=== PATIENT | male | born 2000 | race Caucasian/White ===

== ENCOUNTER 2021-10-06 09:44 | Emergency (ER) | payer BC ==
[2021-10-06 09:53] VITALS: RESP 18; TEMP 97.7
--- NOTE | 2021-10-06 10:08 | ED ---
General Adult HPI - General Chief complaint: Recheck/Abnormal Lab/Rx Stated complaint: covid+, fever Time Seen by Provider: 10/06/21 09:56 Source: patient, RN notes reviewed, old records reviewed Mode of arrival: ambulatory Limitations: no limitations - History of Present Illness Initial comments: 20-year-old male presenting for evaluation of cough, congestion, sore throat. Patient tested positive for coronavirus yesterday. He's had symptoms for 3 days. He has no dyspnea. Minimal cough. Patient is otherwise healthy. He presents for possibility of monoclonal antibodies. - Related Data Allergies Allergy/AdvReac Type Severity Reaction Status Date / Time No Known Allergies Allergy Verified 10/06/21 09:50 Review of Systems ROS Statement: Those systems with pertinent positive or pertinent negative responses have been documented in the HPI. ROS Other: All systems not noted in ROS Statement are negative. Past Medical History Past Medical History: No Reported History History of Any Multi-Drug Resistant Organisms: None Reported Past Surgical History: No Surgical Hx Reported Past Psychological History: No Psychological Hx Reported Smoking Status: Never smoker Past Alcohol Use History: None Reported Past Drug Use History: None Reported General Exam Limitations: no limitations General appearance: alert, in no apparent distress Head exam: Present: atraumatic, normocephalic Eye exam: Present: normal appearance, PERRL ENT exam: Present: normal exam Neck exam: Present: normal inspection. Absent: tenderness, meningismus Respiratory exam: Present: normal lung sounds bilaterally. Absent: respiratory distress, wheezes Cardiovascular Exam: Present: regular rate, normal rhythm GI/Abdominal exam: Present: soft. Absent: distended, tenderness, guarding Extremities exam: Present: normal inspection, normal capillary refill. Absent: pedal edema Neurological exam: Present: alert, oriented X3, CN II-XII intact. Absent: motor sensory deficit Psychiatric exam: Present: normal affect, normal mood Skin exam: Present: warm, dry, intact. Absent: cyanosis, diaphoretic Course Vital Signs 10/06/21 10/06/21 09:51 10:03 Temperature 97.7 F Pulse Rate 60 Respiratory 18 18 Rate Blood Pressure 129/74 O2 Sat by Pulse 99 Oximetry Medical Decision Making - Medical Decision Making Patient does need for medical antibody infusion based on weight. We did discuss risks and benefits and the patient wants to proceed monoclonal antibodies at this time. Disposition Clinical Impression: COVID-19 Disposition: HOME SELF-CARE Condition: Fair Instructions (If sedation given, give patient instructions): Coronavirus Disease 2019 (COVID-19) Additional Instructions: Please follow up with her primary care physician. Please take vitamin C, vitamin D, and zinc at home. Please return with any worsening respiratory issues. Is patient prescribed a controlled substance at d/c from ED?: No Referrals: Art Moore MD [Primary Care Provider] - 1-2 days
[2021-10-06] MEDS ORDERED: SODIUM CHLORIDE 0.9% 50 ML IVPB ONE (11:00)
[2021-10-06] MEDS ORDERED: BAMLANIVIMAB (EUA) 700 MG, ETESEVIMAB (EUA) 1,400 MG in SODIUM CHLORIDE 0.9% 50 ML IVPB ONE (11:00)
[2021-10-06 12:11] VITALS: BP 131/85; PULSE 61
== END 2021-10-06 12:12 | disposition home or self-care (01) ==
LOC: EC 09:44
DX: U07.1 COVID-19 (principal)
CPT/HCPCS: 87635; 99283; J3490